=== PATIENT | female | born 1950 | race African-American/Black ===

== ENCOUNTER 2017-05-28 17:43 | Emergency (ER) | payer MEDICARE ==
[~2017-05-28] VITALS: Ht 162.6 cm; Wt 60.8 kg
[~2017-05-28 17:43] MED LIST: FLUT9.9S NS; LATA2.5D3 EACHEYE; LEVO5TAB2 PO
[2017-05-28 17:55] VITALS: BP 146/66
--- NOTE | 2017-05-28 19:02 | PHYS DOC ---
Adult General Chief Complaint Chief Complaint: ANKLE PROBLEM HPI HPI Patient is a 67 year old female who presents with mild to moderate left lateral ankle pain that began today after she rolled her left ankle getting out of bed. Review of Systems Review of Systems Constitutional: Denies fever or chills [] Musculoskeletal: left lateral ankle pain Integument: Denies rash or skin lesions [] Neurologic: Denies headache, focal weakness or sensory changes [] Allergies Allergies Allergies Coded Allergies Type Severity Reaction Last Updated Verified morphine Allergy Intermediate 09/28/15 Yes lactose Allergy Mild 09/28/15 Yes Physical Exam Physical Exam Constitutional: Well developed, well nourished, no acute distress, non-toxic appearance. [] Skin: Warm, dry, no erythema, no rash. [] Back: No tenderness, no CVA tenderness. [] Extremities: Left ankle with no obvious deformity. Mild soft tissue swelling noted on the lateral aspect of the ankle. Full range of motion to the left ankle and toes. + 2 left pedal pulse. Cap refill less than 2 seconds left toes. Sensation intact to the left foot. Neurologic: Alert and oriented X 3, normal motor function, normal sensory function, no focal deficits noted. [] Psychologic: Affect normal, judgement normal, mood normal. [] EKG EKG [] Radiology/Procedures Radiology/Procedures [] Course & Med Decision Making Course & Med Decision Making Pertinent Labs and Imaging studies reviewed. (See chart for details) Patient is in the ED with left ankle pain after rolling it getting out of bed. Left ankle x-rays interpreted by Dr. Mcgee were negative for any acute findings. Waylon wrap and Aircast applied to the left ankle by the senior games technician, neurovascular exam is intact. Ice elevation encouraged. OTC pain relievers recommended. Follow-up with orthopedic doctor orthopedic in one week. Dragon Disclaimer Dragon Disclaimer This electronic medical record was generated, in whole or in part, using a voice recognition dictation system. Departure Departure Impression: Primary Impression: Left ankle sprain Disposition: HOME, SELF-CARE Condition: STABLE Referrals: LIZZETH LARIOS MD (PCP) PENNY OSBORNE MD Follow-up in one week Patient Instructions: Ankle Sprain Additional Instructions: You were seen for left ankle sprain. Ice and elevate the extremity. Wear the Waylon wrap and air cast provided as tolerated. You can bear weight on the left lower extremity as tolerated. Follow-up with the provided orthopedic doctor in one week if pain continues. Problem Qualifiers Primary Impression: Left ankle sprain Encounter type: initial encounter Involved ligament of ankle: unspecified ligament Qualified Codes: S93.402A - Sprain of unspecified ligament of left ankle, initial encounter JOSE COHEN APRN May 28, 2017 19:02
--- NOTE | 2017-05-29 08:18 | RAD ---
Left ankle, 3 views, 05/28/2017: History: Injury, pain and swelling There is a tiny cortical irregularity along the dorsal aspect of the anterior aspect of the talus compatible with a small avulsion fracture. No major fracture or dislocation is evident. There is mild soft tissue swelling about the ankle. IMPRESSION: Tiny cortical avulsion fracture along the dorsal aspect of the talus.
== END 2017-05-28 19:26 | disposition home or self-care (01) ==
LOC: ER 17:43
DX: S93.402A Sprain of unspecified ligament of left ankle, initial encounter (principal); Z88.5 Allergy status to narcotic agent; Z91.011 Allergy to milk products; X50.9XXA Other and unspecified overexertion or strenuous movements or postures, initial encounter; Y93.89 Activity, other specified; Y99.9 Unspecified external cause status; Y92.89 Other specified places as the place of occurrence of the external cause
CPT/HCPCS: 29515; 73610; 99284; L4350